=== PATIENT | female | born 1985 ===

== ENCOUNTER 2017-09-22 22:41 | Emergency (ER) | payer SELFPAY ==
[2017-09-22 22:56] VITALS: PULSE 66; RESP 18; TEMP 98.1; O2SAT 100
[2017-09-23 00:03] LABS: BASO % 0.3 % (0.0-2.0); EOS # 0.3 K/uL (0.0-0.7); HEMATOCRIT 42.5 % (34.0-47.0); LYMPH # 2.1 K/uL (1.0-4.3); LYMPH % 15.3 % (20.0-40.0); MEAN CELL VOLUME 87.1 fl (81.0-99.0); MEAN CORPUSCULAR HEMOGLOBIN 28.5 pg (27.0-31.0); MEAN CORPUSCULAR HGB CONC 32.7 g/dL (33.0-37.0); MEAN PLATELET VOLUME 8.8 fl (7.2-11.7); MONO # 0.9 K/uL (0.0-0.8); MONO % 6.3 % (0.0-10.0); NEUT # 10.6 K/uL (1.8-7.0); NEUT % 76.1 % (50.0-75.0); RED CELL DISTRIBUTION WIDTH 14.3 % (11.5-14.5); WHITE BLOOD COUNT 13.9 K/uL (4.8-10.8)
[2017-09-23 00:12] LABS: BLOOD UREA NITROGEN 17 mg/dl (7-17); CALCIUM 9.1 mg/dL (8.4-10.2); CARBON DIOXIDE 25 mmol/L (22-30); CHLORIDE 104 mmol/L (98-107); GFR AFRICAN-AMERICAN > 60; GLUCOSE,RANDOM 119 mg/dL (65-105); POTASSIUM 3.4 MMOL/L (3.6-5.0); SODIUM 140 mmol/l (132-148)
[2017-09-23 00:16] LABS: RBC URINE 1 /hpf (0-3); URINE BILIRUBIN NEGATIVE (NEGATIVE); URINE BLOOD NEGATIVE (NEGATIVE); URINE COLOR STRAW (YELLOW); URINE GLUCOSE (UA) NEG (Normal); URINE KETONE NEGATIVE (NEGATIVE); URINE LEUKOCYTE ESTERASE TRACE Leu/uL (Negative); URINE PROTEIN NEGATIVE (NEGATIVE); URINE UROBILINOGEN 0.2-1.0 mg/dL (0.2-1.0); WBC URINE 3 /hpf (0-5)
--- NOTE | 2017-09-23 00:37 | ED PDOC ---
HPI: Back Time Seen by Provider: 09/22/17 23:15 Chief Complaint (Nursing): Abdominal Pain Chief Complaint (Provider): Back Pain History Per: Patient History/Exam Limitations: no limitations Current Symptoms Are (Timing): Still Present Quality Of Discomfort: Cramping Previous Symptoms: Back Pain Associated Symptoms: None Additional Complaint(s): 31 year old female presents to ED with complaints of lower back pain and is . Patient notes LMP is September 03. Describes back pain as cramping and notes having a positive UPreg at home. (-) vaginal bleeding. PCP: Non [facility] - Risk Factors AAA Risk Factors: Neg: Older Than 49 Years Of Age Past Medical History Reviewed: Historical Data, Nursing Documentation, Vital Signs Vital Signs: Last Vital Signs Temp 98.1 F 09/22/17 22:53 Pulse 66 09/22/17 22:53 Resp 18 09/22/17 22:53 BP 129/71 09/22/17 22:53 Pulse Ox 100 09/22/17 22:53 - Surgical History Surgical History: - Family History Family History: States: Unknown Family Hx - Social History Current smoker - smoking cessation education provided: No Ex-Smoker (has not smoked in the last 12 months): No Alcohol: None Drugs: Denies - Immunization History Hx Tetanus Toxoid Vaccination: No Hx Influenza Vaccination: No Hx Pneumococcal Vaccination: No - Home Medications Home Medications: Ambulatory Orders Medication Instructions Recorded Acetaminophen [Tylenol 325mg tab] 650 mg PO Q6 #30 tab 09/21/17 Lidocaine 5% [Lidoderm] 1 ea TD PRN PRN #10 patch 09/21/17 Acetaminophen [Acetaminophen Extra 2 tab PO Q6 PRN #24 tablet 09/23/17 Strength] - Allergies Allergies/Adverse Reactions: Allergies Allergy/AdvReac Type Severity Reaction Status Date / Time No Known Allergies Allergy Verified 09/21/17 08:53 Review of Systems ROS Statement: Except As Marked, All Systems Reviewed And Found Negative Genitourinary Female: Negative for: Vaginal Bleeding Musculoskeletal: Positive for: Back Pain Physical Exam - Reviewed Nursing Documentation Reviewed: Yes Vital Signs Reviewed: Yes - Physical Exam Appears: Positive for: Non-toxic, No Acute Distress Skin: Positive for: Normal Color, Warm, Dry Neck: Positive for: Normal, Painless ROM, Supple Cardiovascular/Chest: Negative for: Murmur Respiratory: Negative for: Respiratory Distress Gastrointestinal/Abdominal: Positive for: Normal Exam, Soft. Negative for: Tenderness Back: Positive for: Normal Inspection Extremity: Positive for: Normal ROM. Negative for: Deformity Neurologic/Psych: Positive for: Alert, Oriented. Negative for: Motor/Sensory Deficits - Laboratory Results Result Diagrams: 09/22/17 23:59 09/22/17 23:59 - ECG O2 Sat by Pulse Oximetry: 100 (RA) Pulse Ox Interpretation: Normal Medical Decision Making Medical Decision Makin Initial impression: menstrual cramps Initial plan: * T&S * Labs * BETA HCG - QUANT * UPreg * UDip * Acetaminophen 650mg PO * UCx * UA * US OB TRANSVAGINAL * Re-eval 0000 UPreg: negative. Scribe Attestation: Documented by Ann Drake acting as a scribe for Ben Santamaria MD. Scribe Attestation: All medical record entries made by the Scribe were at my direction and personally dictated by me. I have reviewed the chart and agree that the record accurately reflects my personal performance of the history, physical exam, medical decision making, and the department course for this patient. I have also personally directed, reviewed, and agree with the discharge instructions and disposition. Disposition - Clinical Impression Clinical Impression: Abdominal pain in female - Patient ED Disposition Is Patient to be Admitted: No - Disposition [facility] Disposition: Routine/Home Disposition Time: 01:13 Condition: FAIR Additional Instructions: [facility]A [facility] EN 1 SEMANA [facility]A [place] Prescriptions: Acetaminophen [Acetaminophen Extra Strength] 2 tab PO Q6 PRN #24 tablet PRN Reason: Pain, Moderate (4-7) Instructions: Abdominal Pain in (ED) Forms: [employer] (Lao) Print Language: LITHUANIAN
[2017-09-23 01:55] VITALS: BP 104/66
== END 2017-09-23 01:55 | disposition home or self-care (01) ==
LOC: H.ER 22:41
DX: O26.899 Other specified pregnancy related conditions, unspecified trimester (principal)